=== PATIENT | male | born 1940 | race Caucasian/White ===

== ENCOUNTER → 2017-08-05 09:05 | Day surgery (SDC) | payer MEDICARE ==
--- NOTE | 2017-08-04 19:48 | HP ---
CC: Dr. Clint Gallardo* HISTORY AND PHYSICAL: DATE OF PLANNED ADMISSION AND SURGERY: 08/05/17 HISTORY OF PRESENT ILLNESS: Mr. Alvarez is a 76-year-old white male who is admitted with right renal calculi and right hydronephrosis for cystoscopy, possible right ureteroscopy, laser lithotripsy and right ureteral stent insertion. Please refer to the history and physical dictated by Dr. Chahal, dated 08/03/17 detailing the medical history, list of medications, and the medical clearance for the procedure. Mr. Alvarez is a known stone former and who presented to my office about 2 weeks ago with right flank pain and vomiting. He did not have any fever or any chills. He was worked up and had a renal ultrasound, which showed a 1.5 cm calculus at the right ureteropelvic junction and another 1-cm calculus in the lower pole calyx of the right kidney. There was a non-obstructing calculus measuring 6 mm in the lower pole calyx of the left kidney. Lab work, which showed an elevation of the serum creatinine at 2.2. He did not have any fever or chills. He was advised that he needed to have a urgent placement of a right ureteral stent in preparation for definitive treatment of the stone. Because of cardiac concerns, he wanted to wait. He was evaluated by Dr. Chahal and had a adjustment of his AICD in [place]. Dr. Chahal saw him on 08/03/17 and cleared him up for the procedure. Please refer to his note. His past history is otherwise negative. He denies any episodes of gross hematuria. He has moderate obstructive voiding symptoms. He is on no medications. The list of his other medications is included in Dr. Chahal's note. The patient is maintained on Plavix and is on one baby aspirin and those were not discontinued in preparation for the procedure. The patient also has an AICD in place. He has no allergies to medications. IMPRESSION: An obstructing 1.5-cm calculus at the right ureteropelvic junction and a non-obstructing 1-cm calculus in the lower pole calyx of the right kidney , and a non-obstructing 6-mm calculus in the lower pole calyx of the left kidney. PLAN: Cystoscopy and the placement of right urethral stent. We will try to perform a right ureteroscopy and laser lithotripsy of the right renal calculus. If on the other hand the ureter is not easily accessible, the procedure will need to be staged. I discussed the above plans with the patient. All his questions were answered. [id number]/[facility] #: [id number] YAMILA
[~2017-08-05 09:05] MED LIST: Buffered Lidocaine 0.9% SYRIN* 5 ML/SYR SYRINGE INTRADERM ONE; Buffered Lidocaine 0.9% SYRIN* 5 ML/SYR SYRINGE ONE; DiMENhydriNATE IV* 50 MG/ML VIAL IV PUSH PRN; EPHEDrine (Pressors)* 50 MG/ML VIAL ONE; Famotidine IV* 10 MG/ML 2 ML (20 mg) IV ONE; Famotidine IV* 10 MG/ML 2 ML (20 mg) ONE; Iohexol 180 (CONTRAST) 10 ML SDV IV ONE; Metoclopramide IV* 5 MG/ML 2 ML VIAL IV SLOW PU ONE; Metoclopramide IV* 5 MG/ML 2 ML VIAL ONE; Phenylephrine IV* 40 MCG/ML 10 ML SYRINGE ONE; Propofol* 10 MG/ML 20 ML BTL IV PUSH ONE; cefTRIAXone(*) 2 GM ADDV.VIAL IVPB ONE; fentaNYL* 50 MCG/ML 2 ML VIAL (100 MCG VIAL) IV PRN; fentaNYL* 50 MCG/ML 2 ML VIAL (100 MCG VIAL) ONE
--- NOTE | 2017-08-05 13:55 | RAD ---
INDICATION: Cystoscopy, right ureteral stent insertion. COMPARISON: Correlation is made with a prior CT of the abdomen and pelvis from November 13, 2014. TECHNIQUE: 9 seconds of intermittent fluoroscopic guidance were provided and 6 spot films of the abdomen were centered on the right side. FINDINGS: There is partial opacification of the right renal collecting system. There is an intraluminal filling defect present within the renal pelvis. Subsequently there is placement of a double-J stent catheter on the right side which demonstrates normal course. IMPRESSION: INTRAOPERATIVE CONTROL FILMS. CPT II Codes: 6045F
[2017-08-05 14:54] VITALS: BP 139/77
--- NOTE | 2017-08-05 15:52 | RAD ---
INDICATION: Postoperative COMPARISON: Retrograde PolyGram August 05, 2017 TECHNIQUE: A single view of the abdomen is submitted. FINDINGS: Bones: There are no acute bony findings. Soft tissues: The soft tissues appear normal. The psoas margins are sharp. Bowel gas pattern: Normal Calcifications: There is right-sided nephrolithiasis. Other: Right ureteral stent in expected position IMPRESSION: RIGHT-SIDED NEPHROLITHIASIS. RIGHT URETERAL STENT.
--- NOTE | 2017-08-05 23:53 | OP ---
CC: Dr. Gallardo OPERATIVE REPORT: DATE OF OPERATION: 08/05/17 DATE OF : 36 SURGEON: Mo Aponte MD ANESTHESIOLOGIST: Devyn Doe MD ANESTHESIA: General. PRE-OP DIAGNOSIS: Right renal calculi. POST-OP DIAGNOSES: 1. Right renal calculus (1.5 cm). 2. Bladder calculus (1 cm). OPERATIVE PROCEDURE: 1. Cystoscopy. 2. Cystolitholapaxy. 3. Right retrograde pyelography and placement of right ureteral stent (7-Tunisian ). INDICATIONS: Mr. Alvarez is a 76-year-old white male, who presented about 2 weeks ago with symptoms of right renal colic and was noted on workup to have a 1.5-cm calculus at the ureteropelvic junction and another 1-cm calculus in the lower pole calyx of the right kidney. The patient was advised to have an urgent stent placement; however, he wanted to go for his cardiac treatment, to have his AICD adjusted. He is now admitted for right stent placement. PATHOLOGY AT CYSTOSCOPY: The penile and bulbar urethrae looked normal. The prostatic urethra measured about 2.5 to 3 cm in length and there was moderate obstruction by prostate enlargement. Examination of the bladder showed a 1-cm calculus in the bladder. The calculus had the gross appearance of a calcium oxalate stone. At fluoroscopy, a 1.5-cm radiopaque calculus was noted at the ureteropelvic junction and no calculus was noted in the lower pole calyx of the right kidney as seen preoperatively. This is suggestive that one of the right renal calculi must have passed spontaneously, although it would seem unlikely considering the size of the stone and the absence of any hyperemia of the right ureteral orifice. There were no suspicious bladder lesions seen. No diverticula noted. Upon right retrograde pyelography, there was moderate right hydronephrosis and a radiopaque calculus at the UPJ. DESCRIPTION OF PROCEDURE: After successful general anesthesia, the patient was placed in the lithotomy position and was prepped and draped for a cystoscopy. Cystoscopy was performed. The bladder was inspected and the above findings were noted. Stone crushing forceps were then introduced inside the bladder and the bladder calculus was broken into multiple fragments. The bladder was then irrigated and the fragments were evacuated and sent for stone analysis. A flexible tip guidewire was then introduced into the right orifice and positioned in the area of the renal pelvis. With the introduction of the guidewire, the calculus migrated into the renal pelvis. Retrograde pyelography was then performed. Considering the patient is on Plavix and that the stone was now in the renal pelvis, it was decided not to pursue the definitive treatment of the renal calculus today and to place a stent only. A 7-Tunisian stent was then placed with the proximal end coiling in the right renal pelvis and the distal end coiling inside the bladder. There was good drainage of contrast from the kidney and no extravasation. The scope was then removed and the size 16-Tunisian Tiwari catheter was passed inside the bladder and the balloon inflated with 10 cc of water. The patient tolerated the procedure well and left the operating room in good condition. The plan is to obtain a KUB before the patient's discharge. Arrangements will be made for definitive treatment of the stone taking into consideration that he is on anticoagulation. [id number]/[facility] #: [id number] YAMILA
== END | disposition home or self-care (01) ==
LOC: OR 09:05
PROVIDERS: ATTEND Urology
DX: N20.0 Calculus of kidney (principal); N21.0 Calculus in bladder; Z79.01 Long term (current) use of anticoagulants; Z95.810 Presence of automatic (implantable) cardiac defibrillator; N13.9 Obstructive and reflux uropathy, unspecified; E11.9 Type 2 diabetes mellitus without complications; Z79.84 Long term (current) use of oral hypoglycemic drugs; I25.9 Chronic ischemic heart disease, unspecified; J45.20 Mild intermittent asthma, uncomplicated; I10 Essential (primary) hypertension; E78.5 Hyperlipidemia, unspecified; I25.810 Atherosclerosis of coronary artery bypass graft(s) without angina pectoris
CPT/HCPCS: 74000; 74420; 82365; 88300; C1876; J0696; J2704; J2765; J3010

== ENCOUNTER 2017-08-24 06:08 | Observation (INO) | payer MEDICARE ==
--- NOTE | 2017-08-16 10:20 | HP ---
CC: Clint Gallardo MD * HISTORY AND PHYSICAL: DATE OF PLANNED ADMISSION AND SURGERY: 08/24/17 HISTORY OF PRESENT ILLNESS: Mr. Alvarez is a 76-year-old white male who is admitted with a right renal calculus, status post placement of a right ureteral stent for cystoscopy, right ureteroscopy, laser lithotripsy and right ureteral stent exchange. Please refer to my history and physical for his admission dated 08/05/17. Mr. Alvarez presented with an obstructing 1.5 cm calculus at the right ureteropelvic junction and another 1 cm calculus in the lower pole calyx of the right kidney. On 08/05/17, he underwent a cystoscopy, which showed a 1 cm calculus in the bladder. The bladder stone was broken and the fragments extracted. There was 1 calculus at the level of the Rt ureteropelvic junction and he had placement of a right ureteral stent. Postoperative KUB showed the stent in good position and a 1.5 cm calculus in the renal pelvis adjacent to the stent, and no other renal calculi. The patient is not a good candidate for shockwave lithotripsy because of the size of the stone and because he is on anticoagulation. The plan is for a cystoscopy and right ureteroscopy, laser lithotripsy and right ureteral stent exchange. The patient has an AICD and is on anticoagulation and the details of his medical and cardiac history are included in Dr. Chahal's note at his recent admission. I checked with Dr. Chahal and he felt that it would be safe to discontinue the anticoagulation preoperatively, and it will be restarted soon post op. I discussed the above plans with the patient. He understands that considering the size of the stone, he might need more than one procedure to render him stone free. There has not been any change in his medical condition or in his medications or the physical exam since his recent admission. [id number]/[facility] #: [id number] [facility]
[~2017-08-24 06:08] MED LIST changes: -Buffered Lidocaine 0.9% SYRIN* 5 ML/SYR SYRINGE ONE; -DiMENhydriNATE IV* 50 MG/ML VIAL IV PUSH PRN; -EPHEDrine (Pressors)* 50 MG/ML VIAL ONE; -Famotidine IV* 10 MG/ML 2 ML (20 mg) IV ONE; -Famotidine IV* 10 MG/ML 2 ML (20 mg) ONE; -Iohexol 180 (CONTRAST) 10 ML SDV IV ONE; -Metoclopramide IV* 5 MG/ML 2 ML VIAL IV SLOW PU ONE; -Metoclopramide IV* 5 MG/ML 2 ML VIAL ONE; -Phenylephrine IV* 40 MCG/ML 10 ML SYRINGE ONE; -Propofol* 10 MG/ML 20 ML BTL IV PUSH ONE; +Sodium Citrate/Citric Acid* 15 ML UDC PO ONE; -cefTRIAXone(*) 2 GM ADDV.VIAL IVPB ONE; -fentaNYL* 50 MCG/ML 2 ML VIAL (100 MCG VIAL) IV PRN; -fentaNYL* 50 MCG/ML 2 ML VIAL (100 MCG VIAL) ONE
[2017-08-24] MEDS ORDERED: Sodium Citrate/Citric Acid* 15 ML UDC ONE (06:53)
[2017-08-24] MEDS ORDERED: Buffered Lidocaine 0.9% SYRIN* 5 ML/SYR SYRINGE ONE (06:53)
[2017-08-24] MEDS ORDERED: cefTRIAXone(*) 2 GM VIAL ONE (06:54)
[2017-08-24] MEDS ORDERED: Iohexol 180 (CONTRAST) 10 ML SDV IV ONE ×2 (07:21→07:22)
[2017-08-24] MEDS ORDERED: fentaNYL* 50 MCG/ML 2 ML VIAL (100 MCG VIAL) ONE (07:59)
[2017-08-24] MEDS ORDERED: Etomidate* 2 MG/ML 10 ML VIAL ONE (08:08)
[2017-08-24] MEDS ORDERED: Phenylephrine INJ* 10 MG/ML 1 ML VIAL (10 MG) ONE (08:32)
[2017-08-24] MEDS ORDERED: fentaNYL* 50 MCG/ML 2 ML VIAL (100 MCG VIAL) IV PRN (09:09)
[2017-08-24] MEDS ORDERED: Naloxone* 0.4 MG/ML 1 ML VIAL IV PRN (09:09)
--- NOTE | 2017-08-24 10:09 | RAD ---
CPT II Codes: 6045F INDICATION: Right-sided renal stones TECHNIQUE: Intraoperative fluoroscopy was provided during retrograde pyelography and right ureteral stent placement. FINDINGS: 8 spot films depict retrograde pyelogram revealing moderate hydronephrosis and contrast filling the upper pole of the left kidney. At the conclusion of the procedure the right ureteral stent is anatomically aligned. Fluoroscopy time: 15 seconds IMPRESSION: As above.
[2017-08-24] MEDS ORDERED: NS 0.9% 250 ML* 250 ML IV ONE (11:39)
[2017-08-24 12:15] LABS: ABS Basophils 0.1 10^3/ul (0-0.2); ABS Eosinophils 0.3 10^3/ul (0-0.6); ABS Lymphocytes 1.5 10^3/ul (1.0-4.8); ABS Monocytes 0.5 10^3/ul (0-0.8); ABS Neutrophils 6.1 10^3/ul (1.5-7.7); ABS Nucleated RBC 0 10^3/ul; Eosinophil % 3.6 % (0-6); Hematocrit 40 % (42-52); Hemoglobin 13.2 g/dl (14.0-18.0); Lymphocyte % 17.5 % (25-47); Mean Corpuscular HGB Conc 33 g/dl (31-36); Mean Corpuscular Hemoglobin 30 pg (27-31); Mean Corpuscular Volume 90 fL (80-94); Mean Platelet Volume 9 um3 (7.4-10.4); Nucleated Red Blood Cells % 0; Platelet Count 131 10^3/ul (150-450); Red Blood Count 4.45 10^6/ul (4.0-5.4); Red Cell Distribution Width 14 % (10.5-15); White Blood Count 8.4 10^3/ul (3.5-10.8)
[2017-08-24 12:28] LABS: EGFR Non-African American 52.9 (>60)
--- NOTE | 2017-08-24 12:49 | CONS ---
ADDENDUM NOW INCLUDED ON THIS REPORT CC: Dr. Chahal; Dr. Gallardo * CARDIOLOGY CONSULTATION: DATE OF CONSULT: 08/24/17 CONSULTING PHYSICIAN: Dr. Aponte. REASON FOR EVALUATION: Hypotension postop. HISTORY OF PRESENT ILLNESS: This is a very pleasant 76-year-old gentleman with a history of ischemic cardiomyopathy, diabetes, and SVT, multiple revascularizations. He also has a history of nephrolithiasis. He had a bladder stone removed about 2 weeks ago and today was admitted for treatment of a right ureteral stone. Intraop, he was noted to have some low blood pressure into the 90s. He was given 1200 cc of crystalloids. A 1.5-cm calculus in the right renal pelvis was removed. Blood pressures dipped as low as 100. He received phenylephrine when his blood pressures were in the 100s; they came back to 120s. In the recovery room, it was low as 96, but currently at 108. The patient had abdominal pain and was nauseous and retching when he first came back from the procedure. Since that time, his pain has resolved. His blood pressure according to nurses was slow when he was retching. Currently, he is pain free and nauseous. He has had no diaphoresis. No chest pain. No orthopnea. No peripheral edema. He said up until now his exercise capacity has been good until the bad weather set in. About a month ago, he was walking up to 3 miles at a time without any symptoms. He takes Lasix on a p.r.n. basis. He only took a sotalol today. He took all his medicines including Diovan and metoprolol yesterday. PAST MEDICAL HISTORY: Of note, he has a history of an AICD recently upgraded to biventricular pacemaker on 08/02/[address] Caceres at [facility], asthma, chronic ischemic heart disease , ischemic cardiomyopathy with an EF in the 30s, hypotension, APCs, hyperlipidemia, and diabetes. His most recent revascularization was in November [address] Garvey. He had a successful drug-eluting stent placed to the left main into the LAD and the first diagonal. His Holter monitor from December of 2014 revealed frequent PVCs, bigeminy, trigeminy, and ventricular runs up to 4 beats. His most recent echo, of 05/27/17, revealed [id number] LVH, global hypokinesis, minor variation, left bundle branch pattern seen with RV pacing, EF of 30% to 35%, closer to 30%, RV systolic function is low normal, pacemaker wire visualized in the RV, mild AI, mild MR, mild TR, trace PI compared to September 2016 though EF had decreased from approximately 35% to 30% and mild MR was new. PAST SURGICAL HISTORY: Includes multivessel bypass grafting in September of 2004 with HERNANDEZ to LAD, saphenous graft to OM1, saphenous graft to PDA. ICD placement in July of 2017 was biventricular pacemaker upgrade. ALLERGIES: He denies any medication allergies. FAMILY HISTORY: Father had Alzheimer's. Mother, diabetes. He has 2 brothers and 1 sister alive, 1 brother of cancer. No premature coronary disease. SOCIAL HISTORY: He is , accompanied by his . He has 4 children. 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 ROS neg x 10 except as above. PHYSICAL EXAM: He is a well-developed, well-nourished gentleman, lying flat, in no apparent distress. No dyspnea. O2 sats 100% on 2 L nasal cannula, pulse is 70, blood pressure 108/72. No significant JVD. Extraocular muscles intact. Sclerae anicteric. Carotids 2+. Pacemaker site dry and intact and healing appropriately. No erythema or drainage. Cardiac Exam: S1, S2. No clear murmurs, gallops, or rubs. Chest was clear. Abdomen: Bowel sounds present. Nontender. Femoral pulses intact without bruits. Distal pulses intact. No edema. Motor strength 5/5 bilaterally. Alert and oriented x3. LABORATORY DATA: Labs from today are pending. From 07/28/17, his sodium was 138, potassium 4.6, BUN of 39, creatinine of 2.17. Troponin was 0.05 on . CBC from 07/28/17, hematocrit of 45, hemoglobin of 14.7, WBC of 6.3, platelet count 143. IMPRESSION AND PLAN: My impression is that Mr. Alvarez had period of relative hypotension intraop and postop in the setting of anesthesia, possible volume depletion, as well as nausea and vomiting. Volume status, vasoactive medications, and vasovagal considerations may have contributed. Certainly, it is more susceptible to compromised hemodynamics due to his low ejection fraction. For the time being, I am recommending the followin. He is to have a bolus of normal saline 250 cc now. 2. I would suggest checking his electrolytes and CBC now. 3. We will check his troponin now and get in 4 hours. 4. If his blood pressures remain stable, he is asymptomatic with negative troponins, would consider discharge later today. The findings were discussed with Dr. Aponte. CARDIOLOGY CONSULTATION ADDENDUM: DATE OF CONSULTATION: 08/24/17 HOME MEDICATIONS: Include: 1. Metformin 500 mg 2 tabs b.i.d. 2. Valsartan 40 mg q.p.m. 3. Sotalol 0.5 tablets b.i.d. and that is half of 80 mg tablet. 4. Rosuvastatin 40 mg a day. 5. Metoprolol succinate 0.5 mg daily. 6. Invokana 1 tab daily. 7. Glipizide 1 tab q.a.m. 8. Clopidogrel 1 tab q.a.m. 9. Aspirin 81 mg a day. 10. Albuterol inhaler two puffs q.6 p.r.n. as an inpatient. See the Anesthesia record for medications that were administered including fentanyl and phenylephrine. CRITICAL CARE TIME: Approximately 45 minutes assessing patient and coordinating care from 11:10 am to 11:55 a m. [id number]/[facility] #: [id number] Becki- [id number]/[facility] #: [id number] YAMILA
--- NOTE | 2017-08-24 16:29 | CONS ---
CARDIOLOGY CONSULTATION: ADDENDUM: DATE OF CONSULTATION: 08/24/17 HOME MEDICATIONS: Include; 1. Metformin 500 mg 2 tabs b.i.d. 2. Valsartan 40 mg q.p.m. 3. Sotalol 0.5 tablets b.i.d. and that is half of 80 mg tablet. 4. Rosuvastatin 40 mg a day. 5. Metoprolol succinate 0.5 mg daily. 6. Invokana 1 tab daily. 7. Glipizide 1 tab q.a.m. 8. Clopidogrel 1 tab q.a.m. 9. Aspirin 81 mg a day. 10. Albuterol inhaler two puffs q.6 p.r.n. as an inpatient. See the Anesthesia record for medications that were administered including fentanyl and phenylephrine. CRITICAL CARE TIME: Approximately 45 minutes assessing patient and coordinating care from 11:10 to 12:50 a.m. [id number]/[facility] #: [id number] YAMILA
[2017-08-24] MEDS ORDERED: Albuterol HFA INHALER* 8 gm MDI INH PRN (16:38)
[2017-08-24] MEDS ORDERED: oxyCODONE/Acetamin 5/325 MG* TAB PO PRN (16:42)
[2017-08-24] MEDS ORDERED: Dextrose 50% Syringe 50 ML* 25 GM/50 ML SYRINGE IV PUSH PRN (16:42)
[2017-08-24] MEDS ORDERED: Valsartan TAB* 40 MG PO SCH ×2 (18:00→21:00)
--- NOTE | 2017-08-24 19:24 | HP ---
CC: Dr. Gallardo; Dr. Chahal * HISTORY AND PHYSICAL: DATE OF ADMISSION: 08/24/17 PRIMARY CARE PROVIDER: Dr. Gallardo. HOG TENDER: Dr. Chahal. UROLOGIST: Dr. Aponte. CHIEF COMPLAINT: Postoperative hypotension. HISTORY OF PRESENT ILLNESS: Mr. Alvarez is a 76-year-old male with a complicated cardiac history including multivessel bypass grafting in September 2004, numerous cardiac stents, transition from single wire pacemaker to biventricular pacemaker who underwent cystoscopy with right ureteroscopy, laser lithotripsy and right ureteral stent exchange. Postoperatively the patient developed hypotension. The patient was seen in consultation by Dr. Huggins shortly after his operation. Intraoperatively, additionally the patient was noted to have some low blood pressures into the 90s. The patient had been having severe abdominal/bladder pain as well as nausea when he first came back from his procedure. With the patient's severe pain, his blood pressure dropped significantly. The patient now states that he is now essentially pain free and no longer nauseous. The patient has no chest pain, no shortness of breath and no lightheadedness at this point. The patient is going to be admitted for observation overnight secondary to postoperative hypotension. PAST MEDICAL HISTORY: 1. Type 2 diabetes. 2. Hyperlipidemia. 3. AFib. 4. Hypertension. 5. Systolic CHF. 6. CAD. 7. Lymphoma. PAST SURGICAL HISTORY: 1. CABG - 3-vessel bypass. 2. Right ureteral stent placement and bladder stone treatment. 3. Laser lithotripsy. 4. Biventricular pacemaker insertion. MEDICATIONS: 1. Metformin 1000 mg p.o. b.i.d. 2. Valsartan 40 mg p.o. q.h.s. 3. Sotalol 40 mg p.o. b.i.d. 4. Crestor 40 mg p.o. daily. 5. Metoprolol XL 12.5 mg p.o. daily. 6. Magnesium oxide 1 tab p.o. daily. 7. Invokana 1 tab p.o. daily. 8. Glipizide 10 mg p.o. daily. 9. Plavix 75 mg p.o. daily, on hold. 10. Aspirin 81 mg p.o. daily. 11. Albuterol 2 puffs inhaled q.6 hours p.r.n. shortness of breath. ALLERGIES: No known drug allergies. FAMILY HISTORY: Mom and dad both had diabetes. He otherwise does not know their medical history. SOCIAL HISTORY: The patient is a lifelong non-smoker. He does not drink alcohol. 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 He is retired. His Rachel is his healthcare proxy. REVIEW OF SYSTEMS: A complete 11-system review of systems is obtained. Pertinent positives and negatives are as per HPI. The patient describes the abdominal pain that he was having postoperatively as bladder cramp or spasm. He also described having severe dysuria when he attempted to urinate postoperatively. PHYSICAL EXAMINATION GENERAL: The patient is a well-developed elderly male lying flat in the stretcher in no acute distress. VITAL SIGNS: Blood pressure 112/61, pulse 74, respirations 12, temp 97.0, O2 sat 96% on room air. HEENT: Pupils are equal. They are round. Extraocular muscles are intact. Oropharynx is clear. Oral mucosa is slightly dry. There is no submandibular, cervical or supraclavicular adenopathy. Thyroid is not enlarged. No thyroid nodules are noted. PULMONARY: Lungs are clear to auscultation bilaterally. CARDIAC: Normal S1, S2. Regular rate and rhythm. I do not appreciate any murmurs. ABDOMEN: Bowel sounds present. Abdomen is soft, nontender, nondistended. MUSCULOSKELETAL: There is no cyanosis or clubbing of the digits. There is full active range of motion of all 4 extremities. SKIN: Warm and dry. There are no rashes. NEUROLOGIC: Cranial nerves II through XII are grossly intact. Sensation is intact to light touch throughout. Strength is 5/5 and symmetric in both upper and lower extremities bilaterally. PSYCH: The patient is alert. He is oriented x3. Affect appears appropriate. LABORATORY DATA: WBC 8.4, hemoglobin 13.2, hematocrit 40, platelets 131,000. Sodium 136, potassium 4.4, chloride 102, CO2 of 30, BUN 22, creatinine 1.31. Glucose 243, calcium 8.7, troponin 0.01. ASSESSMENT AND PLAN: Mr. Alvarez is a 76-year-old male who underwent cystoscopy and right ureteroscopy with laser lithotripsy and right ureteral stent exchange on the day of admission with subsequent postoperative hypotension and is now being admitted to be monitored overnight for stability of his blood pressure. 1. Postoperative hypotension: This appears improved at this point. It is likely that the patient was volume deplete going into surgery given history of diuretic use prior to surgery as well as fasting since the night before. The patient additionally likely was having a vagal response to the severe pain and bladder spasms and dysuria. At this point, the patient states the pain is markedly improved. The patient's blood pressure at this point is nice and stable. He will be admitted to the telemetry floor and monitored overnight. I am not going to continue any maintenance of fluids at this point. I will; however, give him a heart healthy diabetic diet. 2. Type 2 diabetes: The patient's blood sugar postoperatively was elevated; however, he did not take his morning diabetes medications. The patient will resume these this evening. 3. Hypertension: As above, the patient had postoperative hypotension. I will place hold parameters on his usual antihypertensive regimen. 4. Atrial fibrillation: The patient will continue on sotalol. 5. Coronary artery disease: The patient is chest pain free. His troponin is negative. The patient will be continued on his usual outpatient medication regimen. 6. DVT prophylaxis: According to the Adult Thrombosis Prophylaxis Risk Factor Assessment Guide, the patient has a total risk factor score of 3, making him high risk. He will be placed on SCDs alone for DVT prophylaxis. 7. Code status is full. [id number]/[facility] #: [id number] [facility]
--- NOTE | 2017-08-24 21:14 | OP ---
CC: Dr. Clint Gallardo * DATE OF OPERATION: 08/24/17 - ROOM #452 DATE OF : 36 SURGEON: Mo Aponte MD ANESTHESIA: General. ANESTHESIOLOGIST: Dr. Pato Pack. PRE-OP DIAGNOSES: 1. Right renal calculus (1.5 cm). 2. Status post placement of right ureteral stent. POST-OP DIAGNOSES: 1. Right renal calculus (1.5 cm) 2. Status post placement of right ureteral stent. OPERATIVE PROCEDURE: 1. Cystoscopy. 2. Right ureteroscopy and pyeloscopy. 3. Laser lithotripsy of right renal calculus. 4. Right retrograde pyelography and placement of right ureteral stent (7-Central African ). INDICATION FOR PROCEDURE: Mr. Alvarez is a 76-year-old white male who presented about 3 weeks ago with obstructing calculus at the right ureteropelvic junction associated with decreased renal function. He underwent a cystoscopy and placement of right ureteral stent. Postoperative KUB showed stent in good position and the 1.5 cm radiopaque calculus in the renal pelvis adjacent to the stent. The patient now is being admitted for definitive treatment of the stone. PATHOLOGY: Fluoroscopy again showed the stent in good position and the radiopaque stone in the renal pelvis. At cystoscopy, the penile and bulbar urethrae looked normal. The distal limb of the stent was seen coming from the right orifice. Upon right ureteroscopy, the ureter looked normal. Because of the presence of the stent, there was no resistance to the introduction of the semirigid ureteroscope. A 1.5 cm calculus was noted in the renal pelvis. It had the gross appearance of calcium oxalate stone. DESCRIPTION OF PROCEDURE: After successful general anesthesia, the patient was placed in the lithotomy position and was prepped and draped for a cystoscopy. Cystoscopy was performed. The bladder was inspected. The distal limb of the right ureteral stent was pulled out to the level of the urethral meatus. A flexible tip guidewire was then introduced through the lumen of the stent and positioned in the renal pelvis and the stent was removed , keeping the guidewire in place. A size 6.5 semirigid ureteroscope was then introduced inside the bladder. A flexible tip basket was then passed through the port of the ureteroscope and its flexible tip was introduced into the right ureteral orifice adjacent to the guidewire, allowing the atraumatic introduction of the ureteroscope into the right ureter. The ureteroscope was introduced without difficulty all the way into the renal pelvis. The calculus was identified. The basket was deployed and the stone was engaged inside the basket to avoid its proximal migration. A size 550 micron laser fiber was then introduced through the other port of the ureteroscope. The stone was then broken into multiple small fragments with the largest measuring about 5 mm in size. The fragments were then extracted using the basket. At the completion of the procedure, there was gravel in the renal pelvis. All the larger fragments were extracted. The renal pelvis and the ureteral wall were carefully inspected and there was no evidence of any injury. After extraction of all the significant stone fragments from the kidney, the cystoscope was reintroduced over the guidewire. Retrograde pyelography was performed. There was extravasation noted from the upper pole calyx of the right kidney. The site of the extravasation is away from the area of the endoscopy and of the laser lithotripsy and most likely represents ruptured papilla from the increased pressure from ureteroscopy irrigation fluid. There was no evidence of extravasation from the ureter or from the renal pelvis where the ureteroscopy and the lithotripsy were performed. A size 7-[place] stent was then placed with a proximal end coiling in renal pelvis and the distal end coiling inside the bladder. The bladder was then irrigated, evacuating all the stone fragments. A size 16-Central African Tiwari catheter was then placed. The patient tolerated the procedure well and left the operating room in good condition. The plan is to leave the stent in place for about 10 to 12 days. It will be removed in the office under local anesthesia. [id number]/[facility] #: [id number] YAMILA
[2017-08-24] MEDS: Sotalol TAB* 80 MG PO SCH (22:33)
[2017-08-25] MEDS ORDERED: Insulin LISPRO* 1 UNITS UNIT SUBCUT SCH (07:30)
[2017-08-25 07:31] VITALS: BP 134/68
[2017-08-25] MEDS ORDERED: metFORMIN* 500 MG TAB PO SCH (08:00)
[2017-08-25] MEDS ORDERED: Magnesium Oxide TAB* 400 MG PO SCH (09:00)
[2017-08-25] MEDS ORDERED: Atorvastatin* 80 MG TAB PO SCH (09:00)
[2017-08-25] MEDS ORDERED: Aspirin EC Low Dose* 81 MG TAB.EC PO SCH (09:00)
[2017-08-25] MEDS ORDERED: glipiZIDE TAB* 5 MG PO SCH (09:00)
[2017-08-25] MEDS ORDERED: Metoprolol Succinate XL TAB* 25 MG PO SCH (09:00)
[2017-08-25] MEDS: Sotalol TAB* 80 MG PO SCH (09:02)
[2017-08-25] MEDS ORDERED: Clopidogrel TAB* 75 MG PO SCH (10:00)
--- NOTE | 2017-08-25 16:00 | DS ---
CC: Dr. Gallardo; Dr. Aponte; Dr. Chahal * DATE OF ADMISSION: 08/24/2017. DATE OF DISCHARGE: 08/25/2017. PRIMARY CARE PHYSICIAN: Dr. Gallardo. SMELTER CHARGER: Dr. Chahal. UROLOGIST: Dr. Aponte. PRINCIPAL DIAGNOSES: 1. Status post right ureteroscopy, laser lithotripsy and right ureteral stent placement. 2. Postoperative hypotension secondary to volume depletion of vagal episode. SECONDARY DIAGNOSES: 1. Coronary artery disease with ischemic cardiomyopathy. 2. Atrial fibrillation. 3. Hypertension. 4. Type 2 diabetes. 5. History of lymphoma. DISCHARGE MEDICATIONS: 1. Metformin 1000 mg p.o. b.i.d. to be started on p.m. of 08/26/2017. 2. Valsartan 40 mg p.o. at bedtime. 3. Sotalol 40 mg p.o. b.i.d. 4. Crestor 40 mg p.o. daily. 5. Metoprolol XL 12.5 mg p.o. daily. 6. Magnesium Oxide one tab p.o. daily. 7. Invokana one tab p.o. daily. 8. Glipizide 10 mg p.o. daily. 9. Plavix 75 mg p.o. daily - the patient will be contacted by Dr. Aponte on when to resume this. 10. Aspirin 81 mg p.o. daily. 11. Albuterol two puffs inhaled q.6 hours prn shortness of breath. HOSPITAL COURSE: Mr. Alvarez is a 76-year-old male who underwent right ureteroscopy, laser lithotripsy of a renal calculus and right ureteral stent placement on the morning of 08/24/[address] Aponte. Intraoperatively, the patient was noted to have systolics at times in the 90s. Postoperatively, he became quite hypertensive and symptomatic. Dr. Huggins was consulted and felt that likely this was secondary to volume depletion and a vagal response. The patient, by the time I saw him, had improved. His blood pressures were still somewhat soft. The patient was admitted for monitoring of his blood pressure overnight to get him up ambulating in a supervised setting. The patient has done well overnight. His blood pressures are now under good control. The patient at this point is ready for discharge home. He will continue on his usual home antihypertensive regimen. Of note, the patient had his Plavix on hold prior to surgery. For now, I will keep this on hold and the patient will hear back from Dr. Aponte on when to resume the Plavix. Additionally, the patient will need to follow-up with Dr. Aponte, but the timing of this is not clear. At this point, I will also ask Dr. Aponte to inform the patient of when he needs to have follow-up. On the day of discharge, the patient's vital signs revealed a blood pressure of 134/68, pulse 72, respirations 18, a temperature of 98.2 and 95 percent O2 saturation on room air. The patient is awake, alert and oriented, sitting up in bed in no acute distress. His cardiac exam reveals a normal S1 and S2 with a regular rate and rhythm and no lower extremity edema is noted. The patient's lungs are clear to auscultation bilaterally. His abdomen exam reveals bowel sounds are present. Abdomen is soft, nontender, nondistended. The patient is up and ambulating in the lala with a fluid, steady and stable gait. FOLLOW-UP CONCERNS: The patient is being discharged home today, 08/25/2017. ACTIVITY LEVEL: As tolerated. DIET: Diabetic, heart healthy. CONDITION ON DISCHARGE: Stable. Thirty-five minutes were spent discharging this patient. [id number]/[facility] #: [id number] MTDD
== END 2017-08-25 10:00 | disposition home or self-care (01) ==
LOC: OR 06:08 → MEDTELE 16:48
PROVIDERS: ADMIT Urology; ATTEND Hospitalist
PROC: 0TC68ZZ Extirpation of Matter from Right Ureter, Via Natural or Artificial Opening Endoscopic (ICD-10-PCS; principal; 2017-08-24 07:45)
DX: I95.81 Postprocedural hypotension (principal); N13.2 Hydronephrosis with renal and ureteral calculous obstruction; N21.0 Calculus in bladder; E11.9 Type 2 diabetes mellitus without complications; E78.5 Hyperlipidemia, unspecified; I48.91 Unspecified atrial fibrillation; Z79.01 Long term (current) use of anticoagulants; I11.0 Hypertensive heart disease with heart failure; I50.20 Unspecified systolic (congestive) heart failure; I25.10 Atherosclerotic heart disease of native coronary artery without angina pectoris; Z85.72 Personal history of non-Hodgkin lymphomas; Z95.0 Presence of cardiac pacemaker; Z95.1 Presence of aortocoronary bypass graft; Z79.84 Long term (current) use of oral hypoglycemic drugs; Z79.899 Other long term (current) drug therapy
CPT/HCPCS: 36415; 74420; 80048; 82365; 84484; 85025; 88300; 93005; A9270-GY; C1876; G0378; J0696; J3010

== ENCOUNTER 2024-09-14 17:26 | Observation (INO) ==
[2024-09-14 18:59] LABS: Hematocrit 42.4 % (38-53); Hemoglobin 14.2 g/dL (13.2-16.3); Mean Corpuscular Hemoglobin 30.3 pg (27-33); Mean Corpuscular Hgb Conc 33.6 g/dL (31-36); Mean Corpuscular Volume 90.3 fL (80-97); Mean Platelet Volume 9.1 fL (7.5-11.2); Platelet Count 133 10^3/uL (150-450); Red Blood Count 4.69 10^6/uL (4.06-5.63); Red Cell Distribution Width 13.9 % (12-17); White Blood Count 12.5 10^3/uL (3.6-10.2)
[2024-09-14 19:21] LABS: Albumin 3.5 g/dL (3.5-5.7); Albumin/Globulin Ratio 2.3 (1-3); Calcium 8.7 mg/dL (8.6-10.3); Creatinine, Serum 1.53 mg/dL (0.67-1.17); Globulin 1.5 g/dL (2-4); Potassium 4.6 mmol/L (3.5-5.0); Total Bilirubin 1.4 mg/dL (0.2-1.0); eGFR CKD-EPI 44.3 (>60)
[2024-09-14 19:58] LABS: ABS Basophils 0.1 10^3/uL (0.0-0.1); ABS Lymphocytes 0.6 10^3/uL (1.0-4.8); ABS Monocytes 0.8 10^3/uL (0.0-1.1); ABS Neutrophils 11.1 10^3/uL (1.5-7.6); Lymphocyte % 4.5 %; RBC Morphology Normal (Normal)
[2024-09-14] MEDS ORDERED: Albuterol HFA INHALER 8 gm MDI INH PRN (22:23)
[2024-09-14] MEDS: Enoxaparin 30 MG/0.3 ML SYR SUBCUT SCH (23:10)
[2024-09-14] MEDS: Lactated Ringers 1000 ml BAG 1,000 ML IV ONE (23:48)
[2024-09-15 00:50] LABS: INR 1.36 (0.85-1.14)
[2024-09-15] MEDS: cefTRIAXone 1 gm/50 mL D5W 1 GM/50 ML BAG IV SCH (00:59)
[2024-09-15] MEDS: Remdesivir 100 mg Vial 200 MG in NS 0.9% 250 ml 210 ML IV ONE (01:02)
[2024-09-15] MEDS: Dexamethasone IV 4 MG/ML VIAL 1 ml VIAL IV SLOW PU SCH (01:33)
[2024-09-15 01:44] LABS: Albumin/Globulin Ratio 1.9 (1-3); Calcium 8.1 mg/dL (8.6-10.3); Creatinine, Serum 1.66 mg/dL (0.67-1.17); Globulin 1.6 g/dL (2-4); Potassium 4.4 mmol/L (3.5-5.0); Total Bilirubin 1.1 mg/dL (0.2-1.0); Total Protein 4.6 g/dL (6.4-8.9); eGFR CKD-EPI 40.1 (>60)
[2024-09-15] MEDS: Azithromycin 500 mg/250 ml NS 500 MG/250 ML BAG IVPB SCH (02:11)
[2024-09-15] MEDS ORDERED: Dextrose 50% Syringe 50 ml 25 GM/50 ML SYRINGE IV PUSH PRN (02:30)
[2024-09-15 02:37] LABS: Magnesium 1.6 mg/dL (1.9-2.7)
[2024-09-15] MEDS: Lactated Ringers 1000 ml BAG 1,000 ML IV ONE (03:20)
[2024-09-15] MEDS: Magnesium Sulf 4 GM/100 ML IV 4,000 MG/100 ML BAG IVPB ONE (05:24)
[2024-09-15 06:35] LABS: ABS Lymphocytes 0.5 10^3/uL (1.0-4.8); ABS Monocytes 0.5 10^3/uL (0.0-1.1); ABS Neutrophils 9.7 10^3/uL (1.5-7.6); Hematocrit 40.8 % (38-53); Hemoglobin 13.8 g/dL (13.2-16.3); Lymphocyte % 4.6 %; Mean Corpuscular Hemoglobin 30.4 pg (27-33); Mean Corpuscular Hgb Conc 33.9 g/dL (31-36); Mean Corpuscular Volume 89.5 fL (80-97); Mean Platelet Volume 9.3 fL (7.5-11.2); Platelet Count 122 10^3/uL (150-450); Red Blood Count 4.55 10^6/uL (4.06-5.63); Red Cell Distribution Width 13.8 % (12-17); White Blood Count 10.7 10^3/uL (3.6-10.2)
[2024-09-15 06:45] LABS: INR 1.33 (0.85-1.14)
[2024-09-15 07:02] LABS: Albumin 2.9 g/dL (3.5-5.7); Albumin/Globulin Ratio 1.8 (1-3); Calcium 7.9 mg/dL (8.6-10.3); Creatinine, Serum 1.53 mg/dL (0.67-1.17); Globulin 1.6 g/dL (2-4); Magnesium 1.9 mg/dL (1.9-2.7); Potassium 4.5 mmol/L (3.5-5.0); Total Bilirubin 0.6 mg/dL (0.2-1.0); Total Protein 4.5 g/dL (6.4-8.9); eGFR CKD-EPI 44.3 (>60)
[2024-09-15] MEDS: Aspirin EC 81 mg TAB.EC (enteric coated) PO SCH (07:56)
[2024-09-15] MEDS: CANAGLIFLOZIN 300 MG PO SCH (09:41)
[2024-09-15 17:35] LABS: Glucose Confirmatory 405 mg/dL (70-100)
[2024-09-15] MEDS: Remdesivir 100 mg Vial 100 MG in NS 0.9% 250 ml 230 ML IV SCH (21:25)
[2024-09-15] MEDS: Insulin GLARGINE 100 un/ml 10 ml VIAL SUBCUT SCH (21:26)
[2024-09-15 22:24] LABS: Glucose Confirmatory 422 mg/dL (70-100)
[2024-09-16 07:12] LABS: ABS Lymphocytes 0.3 10^3/uL (1.0-4.8); ABS Monocytes 0.7 10^3/uL (0.0-1.1); Hematocrit 38.2 % (38-53); Lymphocyte % 3.2 %; Mean Corpuscular Hgb Conc 33.9 g/dL (31-36); Mean Corpuscular Volume 88.5 fL (80-97); Mean Platelet Volume 9.5 fL (7.5-11.2); Platelet Count 139 10^3/uL (150-450); Red Blood Count 4.32 10^6/uL (4.06-5.63); Red Cell Distribution Width 13.9 % (12-17)
[2024-09-16 07:21] LABS: INR 1.22 (0.85-1.14)
[2024-09-16 08:16] LABS: Albumin 2.9 g/dL (3.5-5.7); Albumin/Globulin Ratio 1.8 (1-3); Creatinine, Serum 1.57 mg/dL (0.67-1.17); Globulin 1.6 g/dL (2-4); Magnesium 2.5 mg/dL (1.9-2.7); Phosphorus 3.6 mg/dL (2.5-5.0); Potassium 4.3 mmol/L (3.5-5.0); Total Bilirubin 0.4 mg/dL (0.2-1.0); Total Protein 4.5 g/dL (6.4-8.9); eGFR CKD-EPI 42.9 (>60)
[2024-09-16] MEDS ORDERED: Dextrose 50% Syringe 50 ml 25 GM/50 ML SYRINGE IV PUSH PRN (12:00)
[2024-09-16] MEDS: Insulin GLARGINE 100 un/ml 10 ml VIAL SUBCUT SCH (22:00)
[2024-09-17] MEDS: Lactated Ringers 1000 ml BAG 1,000 ML IV SCH (02:27)
[2024-09-17 06:31] LABS: ABS Lymphocytes 0.4 10^3/uL (1.0-4.8); ABS Monocytes 0.5 10^3/uL (0.0-1.1); ABS Neutrophils 8.7 10^3/uL (1.5-7.6); Corrected Retic Count 0.7 % (0.5-1.5); Hematocrit 39.2 % (38-53); Hematocrit for Retic CNT 39.2 % (38-53); Immature Retic Fraction 0.16; Lymphocyte % 3.8 %; Mean Corpuscular Hemoglobin 29.7 pg (27-33); Mean Corpuscular Hgb Conc 33.2 g/dL (31-36); Mean Corpuscular Volume 89.3 fL (80-97); Mean Platelet Volume 10.1 fL (7.5-11.2); Platelet Count 147 10^3/uL (150-450); RBC Retic Count 4.38 10^6/ul (4.06-5.63); Red Blood Count 4.38 10^6/uL (4.06-5.63); Red Cell Distribution Width 13.9 % (12-17); White Blood Count 9.5 10^3/uL (3.6-10.2)
[2024-09-17 06:48] LABS: INR 1.32 (0.85-1.14)
[2024-09-17 07:14] LABS: Albumin 2.8 g/dL (3.5-5.7); Calcium 7.6 mg/dL (8.6-10.3); Creatinine, Serum 1.47 mg/dL (0.67-1.17); Globulin 1.4 g/dL (2-4); Magnesium 2.2 mg/dL (1.9-2.7); Potassium 4.5 mmol/L (3.5-5.0); Total Bilirubin 0.4 mg/dL (0.2-1.0); Total Protein 4.2 g/dL (6.4-8.9); eGFR CKD-EPI 46.5 (>60)
[2024-09-17] MEDS: Lactated Ringers 1000 ml BAG 500 ML IV ONE (13:06)
[2024-09-17 14:01] VITALS: BP 138/107
== END 2024-09-17 15:15 | disposition home or self-care (01) ==
LOC: ED 17:26 → EDHOLD 17:26 → SUATTDRO 21:40 → MEDTELE 09-15 00:52
PROVIDERS: ADMIT Student in an Organized Health Care Education/Training Program; ATTEND Internal Medicine